=== PATIENT | male | born 1945 | race Caucasian/White ===

== ENCOUNTER 2022-10-29 14:42 | Outpatient (CLI) | payer MEDICARE ==
--- NOTE | 2022-10-29 16:11 | XRAY Report ---
PROCEDURE: Ankle 3 View LT INDICATIONS: M25.572,R22.42 TECHNIQUE: 3 views of the ankle were acquired. COMPARISON: None FINDINGS: Bones: No fractures or dislocations. Ankle mortise is normally aligned. There is irregular ossifica tion protruding laterally from the distal fibula. Soft tissues: No tibiotalar joint effusion. Achilles tendon appears normal. IMPRESSION: 1. Indeterminate irregular ossification involving the distal fibula. Initial further assessment with MRI with and without intravenous contrast is recommended. 2. No fracture. Reviewed by: Dustin Lujan MD on 10/29/2022 4:10 PM PST Approved by: Dustin Lujan MD on 10/29/2022 4:10 PM PST Station ID: [id number]
== END 2022-10-29 14:43 | disposition home or self-care (01) ==
LOC: DI 14:42
PROVIDERS: ATTEND Registered Nurse
DX: R93.6 Abnormal findings on diagnostic imaging of limbs (principal)

== ENCOUNTER 2022-10-30 17:18 | Emergency (ER) | payer MEDICARE ==
[2022-10-30 17:28] VITALS: BP 142/68
--- NOTE | 2022-10-30 17:59 | ED Physician Documentation ---
History of Present Illness - Stated complaint Stated Complaint: GLF - Chief complaint Chief Complaint: Trauma Hd/Nk - History obtained from History obtained from: Patient, EMS - History of Present Illness Timing: Today - Additonal information Additional information: 77-year-old male presents to the emergency department stating that he had a fall today. He struck the back of his head. Has a scalp hematoma. Denies any other injuries. No chest pain. No shortness of breath. No nausea or vomiting. Patient states that he has broken ribs from a fall on October 26. No loss of consciousness. No altered mental status. No lacerations. He was sent in by [facility] for evaluation of his head injury. Review of Systems Unable to obtain: Dementia Constitutional: denies: Fever, Chills Cardiac: denies: Chest pain / pressure Respiratory: denies: Dyspnea, Cough GI: denies: Abdominal Pain, Nausea, Vomiting, Constipation, Diarrhea Skin: denies: Rash Musculoskeletal: denies: Neck pain, Back pain Neurologic: denies: Headache PD PAST MEDICAL HISTORY - Past Medical History Past Medical History: Yes Neuro: Dementia - Allergies Allergies/Adverse Reactions: Allergies Allergy/AdvReac Type Severity Reaction Status Date / Time No Known Drug Allergies Allergy Verified 10/30/22 18:39 PD ED PE NORMAL - Vitals Vital signs reviewed: Yes - General General: No acute distress, Well developed/nourished, Other (alert, oriented to person and place) - HEENT HEENT: Ears normal, Moist mucous membranes, Other (Posterior scalp hematoma No palpable skull fractures.) - Neck Neck: Supple, no meningeal sign, No bony TTP - Cardiac Cardiac: RRR, Strong equal pulses - Respiratory Respiratory: No respiratory distress, Clear bilaterally - Abdomen Abdomen: Soft, Non tender, Non distended - Back Back: No spinal TTP - Derm Derm: Warm and dry - Extremities Extremities: Normal ROM s pain, No edema - Neuro Neuro: No motor deficit, No sensory deficit, Normal speech Eye Opening: Spontaneous Motor: Obeys Commands Verbal: Confused GCS Score: 14 Results - Vitals Vitals: Vital Signs - 24 hr 10/30/22 17:19 Temperature 37.3 C Heart Rate 70 Respiratory 16 Rate Blood Pressure 142/68 H O2 Saturation 100 Oxygen O2 Source Room air - Rads (name of study) Head CT Radiology: Final report received, See rad report (Cervical spine CT) PD Medical Decision Making - ED course Complexity details: reviewed results, re-evaluated patient, considered differential, d/w patient ED course: 77-year-old male with a closed head injury. No acute findings on head CT or cervical spine CT. No other acute injuries. Has known rib fractures from a fall several days ago. No lacerations to repair. We will have the patient follow-up with his PCP for further care. Patient had a ground-level fall today. He has frequent ground-level falls. This document was made in part using voice recognition software. While efforts are made to proofread this document, sound alike and grammatical errors may occur. Departure - Departure Disposition: 01 Home, Self Care Clinical Impression: Head injury Qualifiers: Encounter type: initial encounter Qualified Code(s): S09.90XA - Unspecified injury of head, initial encounter Scalp hematoma Qualifiers: Encounter type: initial encounter Qualified Code(s): S00.03XA - Contusion of scalp, initial encounter Condition: Good Instructions: ED Head Injury Closed Follow-Up: your,doctor in 1 week [Other] Comments: Your head and cervical spine CT do not show any acute abnormalities. Please follow-up with your doctor for further care. Please return if he worsens. Discharge Date/Time: 10/30/22 22:08
[2022-10-30] MEDS: LORazepam 1 MG TABLET PO STA (18:39)
--- NOTE | 2022-10-30 20:27 | CT Report ---
PROCEDURE: HEAD WO INDICATIONS: fall, head injury TECHNIQUE: Noncontrast 4.5 mm thick angled axial sections acquired from the foramen magnum to the vertex. For r adiation dose reduction, the following was used: automated exposure control, adjustment of mA and/or kV according to patient size. COMPARISON: None. FINDINGS: Image quality: Excellent. CSF spaces: Basal cisterns are patent. No extra-axial fluid collections. Ventricles are normal in size and shape. Brain: No midline shift. No intracranial masses or hemorrhage. Goyal-white matter interface is norm al. Skull and face: Calvarium and visualized facial bones are intact, without suspicious lesions. Sinuses: Visualized sinuses and mastoids are clear. IMPRESSION: 1. No CT evidence of acute intracranial trauma. 2. No significant soft tissue injury or underlying fracture. Reviewed by: Josey Kimball MD on 10/30/2022 8:26 PM PST Approved by: Josey Kimball MD on 10/30/2022 8:26 PM PST Station ID: [id number]
--- NOTE | 2022-10-30 21:01 | CT Report ---
PROCEDURE: CERVICAL SPINE WO INDICATIONS: fall, pain TECHNIQUE: Noncontrast 3 mm thick sections acquired from the skull base to the T4 level. Sagittal and coronal r eformats were then constructed. For radiation dose reduction, the following was used: automated exp osure control, adjustment of mA and/or kV according to patient size. COMPARISON: None. FINDINGS: Image quality: Excellent. Bones: No fractures or dislocations. Moderately severe multilevel degenerative disc height loss, end plate spurring, and facet joint hypertrophy, right worse than left. Moderate degenerative change at t he atlantodental interval with dystrophic calcification present. Visualized superior ribs are intact . Soft tissues: Prevertebral soft tissues are normal in thickness. No paravertebral hematomas. No ap ical pneumothoraces. Bilateral carotid bulb calcification. IMPRESSION: 1. No CT evidence of acute cervical spine fracture or pathologic subluxation. 2. Multilevel degenerative changes. Reviewed by: Josey Kimball MD on 10/30/2022 8:59 PM PST Approved by: Josey Kimball MD on 10/30/2022 8:59 PM PST Station ID: [id number]
== END 2022-10-30 22:08 | disposition home or self-care (01) ==
LOC: EDSEX → EDUNIT# → ED 17:18
DX: S09.90XA Unspecified injury of head, initial encounter (principal); S00.03XA Contusion of scalp, initial encounter; S22.39XD Fracture of one rib, unspecified side, subsequent encounter for fracture with routine healing; W18.30XA Fall on same level, unspecified, initial encounter; Y92.199 Unspecified place in other specified residential institution as the place of occurrence of the external cause; F03.90 Unspecified dementia, unspecified severity, without behavioral disturbance, psychotic disturbance, mood disturbance, and anxiety
CPT/HCPCS: 70450; 72125; 99283; 99284; J8499

== ENCOUNTER 2022-10-30 22:09 | Outpatient (CLI) | payer MEDICARE | END 2022-10-30 23:59 | LOC: EMS 22:09 | PROVIDERS: ATTEND Emergency Medicine | DX: R41.0 Disorientation, unspecified (principal); R53.1 Weakness; Z91.81 History of falling | CPT/HCPCS: A0425; A0428 ==

== ENCOUNTER → 2022-10-30 | Outpatient (CLI) | payer MEDICARE | END | disposition critical access hospital (66) | LOC: EMS 17:13 | DX: S00.83XA Contusion of other part of head, initial encounter (principal); R07.81 Pleurodynia; M54.6 Pain in thoracic spine; W06.XXXA Fall from bed, initial encounter; Y92.122 Bedroom in nursing home as the place of occurrence of the external cause | CPT/HCPCS: A0425; A0429 ==

== ENCOUNTER 2022-11-03 16:32 | Outpatient (CLI) | payer MEDICARE | END 2022-11-03 16:33 | disposition critical access hospital (66) | LOC: EMS 16:32 | DX: R07.9 Chest pain, unspecified (principal) | CPT/HCPCS: A0425; A0429 ==

== ENCOUNTER 2022-11-03 16:36 | Emergency (ER) | payer MEDICARE ==
--- NOTE | 2022-11-03 16:56 | ED Physician Documentation ---
PD HPI CHEST PAIN - Stated complaint Stated Complaint: CP - Chief complaint Chief Complaint: Cardiac - History obtained from History obtained from: Patient, EMS - Additional information Additional information: 77-year-old gentleman with reported history of recent hospitalization for rib fractures, COPD, coronary disease, depression, anxiety, hypertension, paroxysmal atrial fibrillation, Parkinson's disease (although he denies that he has Parkinson's stating that he uses Parkinson medication for restless leg syndrome (, hyperlipidemia, alcohol and nicotine dependence, frequent falls, history of M RSA, history of polio, history of prostate cancer. History is mostly from the paramedics and from paperwork that accompanies him as the patient seems confused. He has a POLST that is yes for CPR and full treatment. It looks like he was recently hospitalized at [facility] getting out a little over a week ago for rib fractures. He is here for chest pain. When I asked the patient what brings him in he says he hit his chest on a metal railing at 9 AM today and has had chest pain ever since but it is getting better. Paramedics state there was no report of any trauma and it is doubtful whether he actually hit his chest. As since the time of chest pain starting is a not completely clear. He is now feeling better he says, he did receive nitroglycerin at the nursing facility prior to arrival. PD PAST MEDICAL HISTORY - Past Medical History Neuro: Dementia - Allergies Allergies/Adverse Reactions: Allergies Allergy/AdvReac Type Severity Reaction Status Date / Time No Known Drug Allergies Allergy Verified 10/30/22 18:39 PD ED PE NORMAL - Vitals Vital signs reviewed: Yes - General General: No acute distress, Other (He is alert and oriented to person and place, when asked, the date he said is August 28, 1993.) - HEENT HEENT: PERRL, EOMI - Neck Neck: Supple, no meningeal sign, No bony TTP - Cardiac Cardiac: RRR, No murmur - Respiratory Respiratory: No respiratory distress, Clear bilaterally - Abdomen Abdomen: Normal bowel sounds, Soft, Non tender, Other (Some bruising left upper quadrant) - Back Back: No CVA TTP, No spinal TTP - Derm Derm: Normal color, Warm and dry - Extremities Extremities: No deformity, No tenderness to palpate, Normal ROM s pain, No edema, No calf tenderness / cord - Neuro Neuro: ict support engineer 2-12 intact Eye Opening: Spontaneous Motor: Obeys Commands Verbal: Confused GCS Score: 14 Results - Vitals Vitals: Vital Signs - 24 hr 11/03/22 11/03/22 16:37 18:40 Temperature 36.8 C Heart Rate 102 H 90 Respiratory 18 17 Rate Blood Pressure 110/73 O2 Saturation 97 99 Oxygen O2 Source Room air - EKG (time done) 1642 EKG releavant findings:: EKG personally interpreted by author of this note. Relevant findings are: Rate: Rate (enter#) (100) Rhythm: Sinus tachycardia Mcintosh: Normal Intervals: Normal FL QRS: Normal Ischemia: Normal ST segments Computer interpretation: Agree with computer - Labs Labs: Laboratory Tests 11/03/22 11/03/22 11/03/22 07:13 07:13 07:13 WBC 9.9 RBC 3.73 L Hgb 10.0 L Hct 32.9 L MCV 88.2 MCH 26.8 L MCHC 30.4 L RDW 13.1 Plt Count 396 MPV 9.4 Neut # (Auto) 7.3 H Lymph # (Auto) 1.2 L [place] # (Auto) 1.0 Eos # (Auto) 0.3 Baso # (Auto) 0.1 Absolute Nucleated RBC 0.00 Nucleated RBC % 0.0 Sodium 137 Potassium 3.9 Chloride 102 Carbon Dioxide 27 Anion Gap 8.0 BUN 15 Creatinine 0.7 Estimated GFR (MDRD) 109 Glucose 135 H Calcium 8.6 Total Bilirubin 0.4 AST 18 ALT < 10 L Alkaline Phosphatase 98 Troponin I High Sens 5.8 Total Protein 6.1 L Albumin 2.8 L Globulin 3.3 Albumin/Globulin Ratio 0.8 L Lipase 56 H 11/03/22 18:55 WBC RBC Hgb Hct MCV MCH MCHC RDW Plt Count MPV Neut # (Auto) Lymph # (Auto) [place] # (Auto) Eos # (Auto) Baso # (Auto) Absolute Nucleated RBC Nucleated RBC % Sodium Potassium Chloride Carbon Dioxide Anion Gap BUN Creatinine Estimated GFR (MDRD) Glucose Calcium Total Bilirubin AST ALT Alkaline Phosphatase Troponin I High Sens 5.9 Total Protein Albumin Globulin Albumin/Globulin Ratio Lipase PD Medical Decision Making - ED course ED course: 77-year-old gentleman presents with chest pain. His recollection is that this was traumatic chest pain, that said his history is suspicious as he does seem confused. He is also recently hospitalized and is tachycardic. Differential would also include ACS, less likely given completely nonischemic EKG but noting he does have a reported history of coronary disease and PE given recent hospitalization. 77-year-old gentleman presents with chest pain. History is unreliable, but his EKG is nonischemic with negative initial troponin and repeated after 2 hours and still negative. CBC reviewed showing mild anemia. CMP showing modest hyperglycemia. Otherwise negative. CT angiogram negative for pulmonary embolism. He does have left basilar atelectasis and left pleural effusion. Departure - Departure Disposition: 01 Home, Self Care Clinical Impression: Chest pain Condition: Good Record reviewed to determine appropriate education?: Yes Instructions: ED Chest Pain NonCardiac Comments: We did 2 troponins and EKG. There is no evidence of active ischemic disease. Also given your recent hospitalization and chest trauma a CT of the chest was done with left basilar atelectasis and left pleural effusion but no pulmonary embolism. He should return if there are any new or worsening symptoms. Otherwise to continue current care. Call your doctor to arrange a follow-up appointment, make the next available appointment. In the interim, return anytime if worse or if new symptoms develop.
[2022-11-03 17:17] LABS: BASOPHILS # (AUTO) 0.1 10^3/uL (0.0-0.1); BASOPHILS % (AUTO) 0.6 %; EOSINOPHILS # (AUTO) 0.3 10^3/uL (0.0-0.7); EOSINOPHILS % (AUTO) 3.4 %; HCT - HEMATOCRIT 32.9 % (42.0-52.0); LYMPHOCYTES # (AUTO) 1.2 10^3/uL (1.5-3.5); LYMPHOCYTES % (AUTO) 11.9 %; MEAN CORPUSCULAR HEMOGLOBIN 26.8 pg (27.0-31.0); MEAN CORPUSCULAR HGB CONC 30.4 g/dL (32.0-36.0); MEAN CORPUSCULAR VOLUME 88.2 fL (80.0-94.0); MEAN PLATELET VOLUME 9.4 fL (7.4-11.4); MONOCYTES % (AUTO) 9.6 %; NEUTROPHILS # (AUTO) 7.3 10^3/uL (1.5-6.6); PLT - PLATELET COUNT 396 10^3/uL (130-450); RED BLOOD COUNT 3.73 10^6/uL (4.70-6.10); RED CELL DISTRIBUTION WIDTH 13.1 % (12.0-15.0); WHITE BLOOD COUNT 9.9 x10^3/uL (4.8-10.8)
[2022-11-03] MEDS ORDERED: iohexoL-300 100 ML VIAL ONE (17:25)
[2022-11-03 17:34] LABS: ALBUMIN 2.8 g/dL (3.2-5.5); ALBUMIN/GLOBULIN RATIO 0.8 (1.0-2.2); ALKALINE PHOSPHATASE 98 IU/L (42-121); ALT ALANINE AMINOTRANSFERASE < 10 IU/L (10-60); AST ASPARTATE AMINOTRANSFERASE 18 IU/L (10-42); BILIRUBIN,TOTAL 0.4 mg/dL (0.2-1.0); BUN - BLOOD UREA NITROGEN 15 mg/dL (6-20); CALCIUM 8.6 mg/dL (8.5-10.3); CARBON DIOXIDE - CO2 27 mmol/L (21-32); CHLORIDE 102 mmol/L (101-111); CREATININE 0.7 mg/dL (0.6-1.2); GFR - MDRD 109 (>89); GLUCOSE 135 mg/dL (70-100); LIPASE 56 U/L (22-51); POTASSIUM 3.9 mmol/L (3.5-5.0); SODIUM 137 mmol/L (135-145); TOTAL PROTEIN 6.1 g/dL (6.7-8.2)
[2022-11-03] MEDS ORDERED: iohexoL-300 100 ML VIAL IVP ONE (18:06)
--- NOTE | 2022-11-03 18:06 | XRAY Report ---
PROCEDURE: Chest 1 View X-Ray INDICATIONS: Chest Pain TECHNIQUE: One view of the chest was acquired. COMPARISON: None. FINDINGS: Surgical changes and devices: None. Lungs and pleura: No pleural effusions or pneumothorax. Lungs are clear. Mediastinum: Mediastinal contours appear normal. Heart size is normal. Bones and chest wall: No suspicious bony lesions. Overlying soft tissues appear unremarkable. IMPRESSION: No acute cardiopulmonary abnormality. Reviewed by: Mic Sarmiento on 11/03/2022 5:05 PM EMELI Approved by: Mic Sarmiento on 11/03/2022 5:05 PM [facility] Station ID: [id number]
--- NOTE | 2022-11-03 18:23 | CT Report ---
PROCEDURE: ANGIO CHEST W/WO INDICATIONS: CHEST PAIN, RECENT HOSPITALIZATION CONTRAST: 80 omni 300 80 ml TECHNIQUE: After the administration of intravenous contrast, 2 mm axial images were acquired from the pulmonary apices to the posterior costophrenic angles during the arterial phase. In addition, 1 mm lung kernel and 5 mm soft tissue kernel reconstructions were performed. 3-dimensional coronal oblique maximum int ensity projection (MIP) reformats, 8 mm axial MIP, and 5 mm coronal and sagittal MPR reformats were t hen performed through the thorax. For radiation dose reduction, the following was used: automated exp osure control, adjustment of mA and/or kV according to patient size. COMPARISON: None FINDINGS: Image quality: Excellent. Pulmonary arteries: Pulmonary arteries are normal in size, and demonstrate no intraluminal filling d efects to suggest central pulmonary embolism. Lungs and pleura: Left pleural effusion and adjacent left basilar atelectasis. No pleural effusions or pneumothorax. Central and peripheral airways are patent. Mediastinum: Heart size is normal, without pericardial effusion. No mediastinal or hilar adenopathy . Thoracic aorta is normal in caliber and enhancement. Esophagus is normal in caliber, without hiat al hernia. The coronary arteries have atherosclerotic calcifications. Bones and chest wall: No suspicious bony lesions. Ribs and thoracic spine appear intact throughout. No axillary or supraclavicular adenopathy. The thyroid is normal in size and there are no incident al findings. Abdomen: Visualized upper abdominal solid organs appear normal in the early arterial phase of enhanc ement. IMPRESSION: 1. Left basilar atelectasis and left pleural effusion. 2. No pulmonary embolism. 3. Coronary artery disease. Reviewed by: Mic Sarmiento on 11/03/2022 5:21 PM [place] Approved by: Mic Sarmiento on 11/03/2022 5:21 PM [facility] Station ID: [id number]
[2022-11-03 20:57] VITALS: BP 171/74
== END 2022-11-03 21:27 | disposition home or self-care (01) ==
LOC: EDUNIT# → ED 16:36
DX: R07.9 Chest pain, unspecified (principal); I48.0 Paroxysmal atrial fibrillation; I10 Essential (primary) hypertension
CPT/HCPCS: 36415; 71045; 71275; 80053; 83690; 84484; 85025; 93005; 99283; 99284; Q9967

== ENCOUNTER 2022-11-03 21:11 | Outpatient (CLI) | payer MEDICARE | END 2022-11-03 21:12 | disposition home or self-care (01) | LOC: EMS 21:11 | PROVIDERS: ATTEND Emergency Medicine | DX: R53.1 Weakness (principal); R41.0 Disorientation, unspecified; F03.90 Unspecified dementia, unspecified severity, without behavioral disturbance, psychotic disturbance, mood disturbance, and anxiety | CPT/HCPCS: A0425; A0428 ==

== ENCOUNTER 2022-11-04 00:51 | Outpatient (CLI) | payer MEDICARE | END 2022-11-04 23:59 | disposition EMS.NT | LOC: EMS 00:51 | DX: Z03.89 Encounter for observation for other suspected diseases and conditions ruled out (principal) ==

== ENCOUNTER 2022-11-07 08:00 | Outpatient (CLI) | payer MEDICARE ==
[2022-11-07 12:36] LABS: BILIRUBIN,URINE NEGATIVE (NEGATIVE); GLUCOSE, URINE (UA) NEGATIVE (NEGATIVE); KETONES,URINE (UA) TRACE mg/dL (NEGATIVE); LEUKOCYTE ESTERASE, URINE SMALL (NEGATIVE); NITRITE,URINE NEGATIVE (NEGATIVE); OCCULT BLOOD,URINE MODERATE (NEGATIVE); PROTEIN,URINE 30 mg/dL (NEGATIVE); UROBILINOGEN,URINE 0.2 (NORMAL) E.U./dL (NORMAL)
[2022-11-07 12:38] LABS: CLARITY,URINE CLEAR (CLEAR)
[2022-11-07 12:49] LABS: BACTERIA,URINE None Seen /HPF (None Seen); MUCUS,URINE Few Strands; SQUAMOUS EPITHELIAL CELL,UR RARE Squamous (<= Few)
== END 2022-11-07 23:59 | disposition home or self-care (01) ==
LOC: LAB.R 08:00
PROVIDERS: ATTEND Registered Nurse
DX: N39.0 Urinary tract infection, site not specified (principal)
CPT/HCPCS: 81001; 81003; 87086

== ENCOUNTER 2022-11-10 13:06 | Outpatient (CLI) | payer MEDICARE | END 2022-11-10 13:07 | disposition critical access hospital (66) | LOC: EMS 13:06 | DX: T83.021A Displacement of indwelling urethral catheter, initial encounter (principal); N48.89 Other specified disorders of penis; W06.XXXA Fall from bed, initial encounter; Y92.122 Bedroom in nursing home as the place of occurrence of the external cause; U07.1 COVID-19 | CPT/HCPCS: A0425; A0429 ==

== ENCOUNTER 2022-11-10 13:12 | Emergency (ER) | payer MEDICARE ==
--- NOTE | 2022-11-10 13:48 | ED Physician Documentation ---
History of Present Illness - Stated complaint Stated Complaint: GLF - Chief complaint Chief Complaint: Trauma Ext - Additonal information Additional information: 77-year-old male was brought to the emergency department for evaluation of left arm pain and displaced Oliver catheter. He is a [facility] Repeat cortically the patient fell while trying to get out of bed. Care staff at the home tell our nursing staff that he has a number of pads placed around the bed because he is a frequent fall or. He is not anticoagulated but he does have a history of Parkinson's as well as significant dementia. His POLST form indicates he is a full resuscitative measures patient. The patient appears very geriatric and disheveled. States he did not strike his head. States his left arm hurts. History is limited otherwise given patient's dementia and condition pt is covid +; no cough. No hypoxia Review of Systems Unable to obtain: Dementia PD PAST MEDICAL HISTORY - Past Medical History Neuro: Dementia - Allergies Allergies/Adverse Reactions: Allergies Allergy/AdvReac Type Severity Reaction Status Date / Time No Known Drug Allergies Allergy Verified 10/30/22 18:39 - Social History Does the pt smoke?: No Smoking Status: Never smoker PD ED PE EXPANDED - General General: Alert, No acute distress, Disheveled, poorly kept - Cardiac Cardiac: Regular Rate, Radial strong equal, Pedal strong equal, Cap refill < 2 sec - Back Back: No: Vertebral tenderness (No vertebral tenderness elicited with palpation of the cervical thoracic or lower lumbar spine. No ecchymosis or bruising noted. No step-off or deformity.) - Extremities Extremities: Left elbow (Mild tenderness with palpation of the lateral elbow without bruising swelling or ecchymosis. Significant bruising noted on the forearm with a dry dressing in place. Mild tenderness also elicited with palpation of the radial wrist but normal flexion extension.) - Neuro Neuro: Confused, CNII-XII intact, Normal speech - GCS Eye Opening: Spontaneous Motor: Obeys Commands Verbal: Confused Total: 14 Results - Vitals Vitals: Vital Signs - 24 hr 11/10/22 11/10/22 13:23 14:48 Temperature 37.3 C Heart Rate 67 73 Respiratory 18 16 Rate Blood Pressure 115/66 146/78 H O2 Saturation 99 98 Oxygen O2 Source Room air - Rads (name of study) LEFT ELBOW XR Relevant Findings:: Final report received (Sequelae of remote injury to the proximal ulna. No acute findings of the elbow) left wrist Relevant Findings:: Final report received (No acute fracture) CT head Relevant Findings:: Final report received (No acute intracranial process) PD Medical Decision Making - ED course Complexity details: reviewed results, re-evaluated patient, considered lorenzo tiapavel ED course: 77-year-old male who has a history of dementia, Parkinson's disorder as well as a chronic indwelling Oliver catheter presents to the emergency department after a fall out of bed at his care facility. He does have frequent falls and has mats placed around his bed secondary to this. He denies any head strike or loss of consciousness. He did report left elbow pain. Reportedly the Oliver catheter was removed after he fell and the nursing care staff is requesting we replace it. This was replaced in the ER. Given lack of fevers abdominal pain will defer any urinalysis is is likely to show chronic contamination. A CT of the head today shows no acute intra cranial findings. X-ray of the left elbow did show a remote ulnar fracture though no acute injury. Given the patient's ability to move his elbow normally and no acute findings we will delay for any splinting. The x-ray of the wrist was unremarkable. He is discharged in stable condition with known COVID-19 infection. Unremarkable cardiopulmonary auscultation without hypoxia. Discharged back to the care facility in stable condition Departure - Departure Disposition: 01 Home, Self Care Clinical Impression: History of dementia Fall Qualifiers: Encounter type: initial encounter Qualified Code(s): W19.XXXA - Unspecified fall, initial encounter Oliver catheter problem Qualifiers: Encounter type: initial encounter Qualified Code(s): T83.9XXA - Unspecified complication of genitourinary prosthetic device, implant and graft, initial encounter Condition: Stable Record reviewed to determine appropriate education?: Yes Comments: Xavier was seen today in the emergency department after he fell out of bed at the correction and onto mats. The CT of the head did not show any intracranial hemorrhage. Xavier had reported that his left arm hurt. An x-ray of the elbow shows that he is likely had a very old fracture of the ulna but no new fractures today. The x-ray of his wrist was normal. We did replace the Oliver catheter. Further care to be dictated prior to his [facility] care provider. Please discuss this ED visit with his attending physician
--- NOTE | 2022-11-10 14:16 | XRAY Report ---
PROCEDURE: Elbow 3 View LT INDICATIONS: glf TECHNIQUE: 3 views of the elbow were acquired. COMPARISON: None FINDINGS: The exam is degraded by nonstandard alignment Bones: Remote healed ulnar fracture. No acute fracture. No suspicious bony lesions. Soft tissues: No elbow joint effusion. No suspicious soft tissue calcifications. IMPRESSION: Sequela of remote injury to the proximal ulna. No acute findings of the elbow. Reviewed by: Victor Hugo Borrego MD on 11/10/2022 1:15 PM OLIVIA Approved by: Victor Hugo Borrego MD on 11/10/2022 1:15 PM OLIVIA Station ID: [id number]
--- NOTE | 2022-11-10 14:18 | XRAY Report ---
PROCEDURE: Wrist 3 View LT INDICATIONS: glf TECHNIQUE: 3 views of the wrist were acquired. COMPARISON: None FINDINGS: Exam is degraded by nonstandard views. Bones: Remote fracture of the distal ulna. No acute fractures or dislocations. No suspicious bony l esions. Moderate osteoarthritic changes of the first carpometacarpal sludge high scaphoid joint. Soft tissues: No suspicious soft tissue calcifications. IMPRESSION: No acute fracture. Reviewed by: Victor Hugo Borrego MD on 11/10/2022 1:16 PM OLIVIA Approved by: Victor Hugo Borrego MD on 11/10/2022 1:16 PM AKTOI Station ID: [id number]
[2022-11-10] MEDS ORDERED: LIDOCAINE 2% URO-JET 5 ML SYRINGE UR STA (14:29)
--- NOTE | 2022-11-10 15:07 | CT Report ---
PROCEDURE: HEAD WO INDICATIONS: glf; unwittness; demented TECHNIQUE: Noncontrast 4.5 mm thick angled axial sections acquired from the foramen magnum to the vertex. For r adiation dose reduction, the following was used: automated exposure control, adjustment of mA and/or kV according to patient size. COMPARISON: None. FINDINGS: Image quality: Excellent. CSF spaces: Basal cisterns are patent. No extra-axial fluid collections. Ventricles are normal in size and shape. Brain: Diffuse parenchymal volume loss with expansion CSF containing spaces. No midline shift. No i ntracranial masses or hemorrhage. Goyal-white matter interface is normal. Skull and face: Calvarium and visualized facial bones are intact, without suspicious lesions. Sinuses: Visualized sinuses and mastoids are clear. IMPRESSION: No intracranial hemorrhage or acute intracranial findings. Sequela of chronic microvascular ischemic disease. Reviewed by: Victor Hugo Borrego MD on 11/10/2022 2:06 PM OLIVIA Approved by: Victor Hugo Borrego MD on 11/10/2022 2:06 PM AKTOI Station ID: [id number]
[2022-11-10 16:59] VITALS: BP 137/74
== END 2022-11-10 17:01 | disposition home or self-care (01) ==
LOC: EDUNIT# → ED 13:12
DX: Z04.3 Encounter for examination and observation following other accident (principal); Z46.6 Encounter for fitting and adjustment of urinary device; F03.90 Unspecified dementia, unspecified severity, without behavioral disturbance, psychotic disturbance, mood disturbance, and anxiety
CPT/HCPCS: 99284

== ENCOUNTER 2022-11-10 17:05 | Outpatient (CLI) | payer MEDICARE | END 2022-11-10 17:06 | LOC: EMS 17:05 | PROVIDERS: ATTEND Registered Nurse | DX: U07.1 COVID-19 (principal); F03.90 Unspecified dementia, unspecified severity, without behavioral disturbance, psychotic disturbance, mood disturbance, and anxiety | CPT/HCPCS: A0425; A0428 ==

== ENCOUNTER 2022-11-29 23:54 | Outpatient (CLI) | payer MEDICARE | END 2022-11-29 23:55 | disposition critical access hospital (66) | LOC: EMS 23:54 | DX: S00.03XA Contusion of scalp, initial encounter (principal); W18.30XA Fall on same level, unspecified, initial encounter; Y92.092 Bedroom in other non-institutional residence as the place of occurrence of the external cause | CPT/HCPCS: A0425; A0429 ==

== ENCOUNTER 2022-11-29 23:58 | Emergency (ER) | payer MEDICARE ==
--- NOTE | 2022-11-30 00:17 | ED Physician Documentation ---
PD HPI Fall - Stated complaint Stated Complaint: GLF - History obtained from History obtained from: Patient, EMS - History of Present Illness Mechanism of injury: Other (fell out of bed) Fall distance: From bed Where injury occurred: Home ([facility]) Timing - onset: Today Injury(ies) location: Head Quality of pain: Pain Associated symptoms: No: LOC, AMS, Amnesia, Seizures, Ear drainage, Nasal drainage, Neck pain, Weakness, Paresthesias, Dyspnea, Nausea / vomiting, Hematemesis, Abdominal distension Symptoms improve with: Rest Contributing factors: No: Anticoagulated, Intoxicated Similar symptoms before: Diagnosis (fall with concussion) Recently seen: Emergency Dept - Additional information Additional information: Xavier Gray is a 77-year-old resident of [facility]. He has a history of Parkinson's and frequent falls. The patient actually denies Parkinson's states that he is only on this medication for treatment of restless leg syndrome. This evening he has fallen out of his bed and struck his head. His bed is low to the ground. There was no padding. He has ecchymosis to the top of his head. The patient is wanting evaluation here in the emergency department. Review of Systems Constitutional: denies: Fever Eyes: denies: Decreased vision Ears: denies: Ear pain Nose: denies: Rhinorrhea / runny nose, Congestion Throat: denies: Sore throat Cardiac: denies: Chest pain / pressure, Palpitations Respiratory: denies: Dyspnea, Cough GI: denies: Abdominal Pain, Nausea, Vomiting, Constipation, Diarrhea : denies: Dysuria, Frequency Skin: denies: Rash Musculoskeletal: reports: Neck pain. denies: Back pain, Extremity pain Neurologic: reports: Headache, Head injury. denies: Generalized weakness, Focal weakness, Numbness, LOC PD PAST MEDICAL HISTORY - Past Medical History Neuro: Dementia - Present Medications Home Medications: Ambulatory Orders Medication Instructions Recorded Confirmed Acetaminophen [Tylenol] 650 mg PO Q4H PRN 11/30/22 11/30/22 Atorvastatin Calcium 40 mg PO HS 11/30/22 11/30/22 Bisacodyl Supp [Dulcolax Supp] 10 mg GA Q4D PRN 11/30/22 11/30/22 Carbidopa/Levodopa ER 50/200 1 tab PO BID 11/30/22 11/30/22 [Sinemet Cr 50 mg/200 mg] Carbidopa/Levodopa 1 each PO HS 11/30/22 11/30/22 [Carbidopa-Levodopa 25-100 Tab] Magnesium Oxide 400 mg PO BID 11/30/22 11/30/22 Metoprolol Succinate [Toprol Xl] 25 mg PO DAILY 11/30/22 11/30/22 Mometasone Furoate [Asmanex] 2 puffs INH BID 11/30/22 11/30/22 Oxycodone HCl [Oxaydo] 5 mg PO Q3H PRN 11/30/22 11/30/22 Sertraline HCl 100 mg PO DAILY 11/30/22 11/30/22 Tamsulosin HCl [Flomax] 0.4 mg PO BID 11/30/22 11/30/22 Tiotropium [place] [Spiriva 1 cap INH DAILY 11/30/22 11/30/22 Handihaler] clonazePAM [Klonopin] 1 mg PO BID 11/30/22 11/30/22 hydroCHLOROthiazide [Hydrodiuril] 12.5 mg PO DAILY 11/30/22 11/30/22 traZODone [Desyrel] 100 mg PO HS PRN 11/30/22 11/30/22 - Allergies Allergies/Adverse Reactions: Allergies Allergy/AdvReac Type Severity Reaction Status Date / Time No Known Drug Allergies Allergy Verified 10/30/22 18:39 - Social History Does the pt smoke?: No Smoking Status: Never smoker PD ED PE NORMAL - Vitals Vital signs reviewed: Yes (Hypertensive) - General General: No acute distress, Well developed/nourished - HEENT HEENT: PERRL, EOMI, Other (There is ecchymosis and swelling to the top of the head there is some mild pain to the neck with normal range of motion) - Neck Neck: Supple, no meningeal sign, Other (mild central tenderness ) - Cardiac Cardiac: RRR, No murmur - Respiratory Respiratory: No respiratory distress, Clear bilaterally - Abdomen Abdomen: Soft, Non tender - Back Back: No CVA TTP, No spinal TTP - Derm Derm: Normal color, Warm and dry, No rash - Extremities Extremities: No deformity, No edema - Neuro Neuro: Alert and oriented X 3, managed care provider 2-12 intact, No motor deficit, No sensory deficit, Normal speech Eye Opening: To Voice Motor: Obeys Commands Verbal: Oriented GCS Score: 14 - Psych Psych: Normal mood, Normal affect Results - Vitals Vitals: Vital Signs - 24 hr 11/30/22 11/30/22 00:13 03:37 Temperature 36.7 C Heart Rate 76 75 Respiratory 16 13 Rate Blood Pressure 112/94 H 145/88 H O2 Saturation 98 97 Oxygen O2 Source Room air - Rads (name of study) CT head Relevant Findings:: Prelim report reviewed (Impression: 1. No acute intracranial abnormality. Moderate cerebral volume loss and mild chronic white matter small vessel ischemic changes.), EMP independent interpretation of test cervical spine Relevant Findings:: Prelim report reviewed (Impression: 1. No fracture or subluxation.), EMP independent interpretation of test PD Medical Decision Making - ED course Complexity details: reviewed old records, reviewed results, re-evaluated patient, considered differential, d/w patient ED course: 77-year-old male with frequent falls is fallen out of bed has a contusion to his head he did have some confusion associated with this and when he arrived to the emergency department he preferred to lay with his eyes closed. CT scanning of the head was undertaken without evidence of intracranial hemorrhage. The patient was released back to the long term. Departure - Departure Disposition: 01 Home, Self Care Clinical Impression: Head injury Qualifiers: Encounter type: initial encounter Qualified Code(s): S09.90XA - Unspecified injury of head, initial encounter Condition: Stable Instructions: ED Head Injury Closed Follow-Up: JOSE ALBERTO HUNTER MD [Physician No Access] - Comments: Xavier, today it looks like a fall you have out of your bed did not injure your head or your neck. Discharge Date/Time: 11/30/22 04:22
[2022-11-30 03:38] VITALS: BP 145/88
--- NOTE | 2022-11-30 07:08 | CT Report ---
PROCEDURE: HEAD WO INDICATIONS: fall head injury TECHNIQUE: Noncontrast 4.5 mm thick angled axial sections acquired from the foramen magnum to the vertex. For r adiation dose reduction, the following was used: automated exposure control, adjustment of mA and/or kV according to patient size. COMPARISON: CT head 11/10/2022. FINDINGS: Image quality: There is mild motion artifact. CSF spaces: There is moderate cerebral volume loss with prominence of the ventricles and sulci. Basa l cisterns are patent. No extra-axial fluid collections. Brain: No intracranial hemorrhage, mass, or mass effect. Goyal-white matter interface is preserved. T here are subcortical and periventricular white matter hypodensities consistent with mild chronic smal l vessel ischemic changes. Skull and face: Calvarium and visualized facial bones are intact, without suspicious lesions. Sinuses: Visualized sinuses and mastoids are clear. IMPRESSION: 1. No acute intracranial abnormality. 2. Moderate cerebral volume loss and mild chronic white matter small vessel ischemic changes. Reviewed by: Woody Cordero MD on 11/30/2022 1:45 AM PDT Approved by: Woody Cordero MD on 11/30/2022 1:45 AM PDT Station ID: [id number]
--- NOTE | 2022-11-30 07:08 | CT Report ---
PROCEDURE: CERVICAL SPINE WO INDICATIONS: fall head injury TECHNIQUE: Noncontrast 3 mm thick sections acquired from the skull base to the T4 level. Sagittal and coronal r eformats were then constructed. For radiation dose reduction, the following was used: automated exp osure control, adjustment of mA and/or kV according to patient size. COMPARISON: None. FINDINGS: Image quality: Excellent. Bones: No fractures or subluxation. There is straightening of the cervical lordosis. Minimal anterol isthesis demonstrated at C3-C4. There is minimal retrolisthesis at C4-C5 and C5-C6. Visualized superi or ribs are intact. Soft tissues: Prevertebral soft tissues are normal in thickness. No paravertebral hematomas. No ap ical pneumothoraces. IMPRESSION: 1. No fracture or subluxation. Reviewed by: Woody Huang MD on 11/30/2022 1:47 AM PDT Approved by: Woody Huang MD on 11/30/2022 1:47 AM PDT Station ID: [id number]
== END 2022-11-30 04:22 | disposition home or self-care (01) ==
LOC: EDUNIT# → ED 23:58
DX: S09.90XA Unspecified injury of head, initial encounter (principal); W06.XXXA Fall from bed, initial encounter; Z91.81 History of falling
CPT/HCPCS: 99284

== ENCOUNTER 2022-11-30 04:11 | Outpatient (CLI) | payer MEDICARE | END 2022-11-30 04:12 | disposition home or self-care (01) | LOC: EMS 04:11 | PROVIDERS: ATTEND Emergency Medicine | DX: R41.0 Disorientation, unspecified (principal); S06.0XAA Concussion with loss of consciousness status unknown, initial encounter; W18.30XA Fall on same level, unspecified, initial encounter | CPT/HCPCS: A0425; A0428 ==